=== PATIENT | female | born 1975 | race Caucasian/White ===

== ENCOUNTER 2016-03-19 13:50 | Outpatient (CLI) | payer MEDICARE, MEDICAID ==
[2016-03-19 13:50] VITALS: BP 116/80
[~2016-03-19 13:50] MED LIST: BACLOFEN20 MG PO; BACTRIM DS 8001 TAB PO; CLINORIL GENER200 MG PO; CLONAZEPAM 1MG T1 MG PO; DIAZEPAM5 M1 PO; EPIPEN 2-PAK1 MG/ML MR; FIORICET1 CAP PO; FLEXERIL10 MG PO; FLUOXETINE HYDR20 M1 PO; FLUOXETINE20 M2 PO; HYDROXYZINE PAM50 MG PO; LAMICTAL 100 M100 MG PO; LASIX20 MG PO; LORTAB 500 MG-71 TAB PO; NORTRIPTYLINE25 MG PO; PREDNISONE 20MG20 MG PO; PRISTIQ50 MG PO; PROTONIX 40MG T40 MG PO; SEPTRA DS 800 M1 TAB PO; SINGULAIR10 MG PO; SUDAFED30 MG PO; TESSALON PERLE100 MG PO; TOPAMAX50 MG PO; VICODIN 5/500 T1 TAB PO; VITAMIN D32000 IU PO; VOLTAREN75 MG PO; WELLBUTRIN 150150 MG PO; ZANTAC 150150 MG PO; ZITHROMAX Z-PA250 M1 PO; ZYPREXA2.5 MG PO; ZYRTEC10 M2 PO
[2016-05-24] MEDS ORDERED: PREDNISONE5 MG PO (23:34)
[2016-05-25] MEDS ORDERED: KEFLEX 500MG.500 MG PO (00:17)
== END 2016-03-19 16:46 | disposition home or self-care (01) ==
LOC: COP 13:50
DX: L50.1 Idiopathic urticaria (principal)
CPT/HCPCS: J2357

== ENCOUNTER → 2016-04-10 | Outpatient (CLI) | payer MEDICARE, MEDICAID ==
[~2016-04-10] MED LIST changes: +KEFLEX 500MG.500 MG PO; +PREDNISONE5 MG PO
[2016-04-10 17:06] LABS: HEMOGLOBIN 14.8 g/dL (12.2-16.2); LYMPH % 24.9 % (10-50.0)
[2016-04-10 18:17] LABS: BUN 10 mg/dL (7-18)
[2016-04-10 18:18] LABS: GFR (ESTIMATED) 137 ML/MIN (59-)
== END ==
LOC: LAB 16:37
DX: L50.8 Other urticaria (principal); Z79.899 Other long term (current) drug therapy